=== PATIENT | female | born 1940 | race Two or more races ===

== ENCOUNTER 2023-03-05 12:28 | Emergency (ER) | payer SELFPAY ==
[2023-03-05] MEDS ORDERED: SODIUM CHLORIDE 0.9% 1,000 ML IV ONE (14:30)
[2023-03-05 15:12] LABS: Hematocrit 32.9 % (36.0-46.0); Hemoglobin 10.8 g/dL (12.2-16.2); Mean Corpuscular Hemoglobin 29.9 pg (28.0-32.0); Mean Corpuscular Hgb Conc. 32.8 g/dL (32.0-36.0); Mean Corpuscular Volume 91.1 fL (80.0-100.0); Red Blood Cells 3.61 10^6/uL (4.0-5.20); Red Cell Distribution Width 13.7 % (11.8-14.3); White Blood Cell 14.6 10^3/uL (4.4-10.8)
[2023-03-05 15:19] LABS: Basophils % (manual) 0 (0.0-2.0); Blast Cells 0; Eosinophils % (manual) 0 (0-7); Metamyelocytes % 0; Myelocytes % 0; Promyelocytes % 0; Reactive Lymphocytes 0
[2023-03-05 15:28] LABS: Alanine Aminotransferase 24 U/L (7-40); Alkaline Phosphatase 94 U/L (46-116); Anion Gap 14 (5-15); Aspartate Aminotransferase 53 U/L (13-40); BUN/Creatinine Ratio 24.6 (10.0-20.0); Blood Urea Nitrogen 17 mg/dL (9-23); Calcium 8.8 mg/dL (8.7-10.4); Carbon Dioxide 19 mmol/L (20-30); Chloride 107 mmol/L (98-107); Glucose 124 mg/dL (74-106); Magnesium 1.7 mg/dL (1.6-2.6); Potassium 3.2 mmol/L (3.5-5.1); Sodium 140 mmol/L (136-145)
[2023-03-05 15:29] LABS: Bilirubin, Total 0.9 mg/dL (0.2-1.0); Total Protein 6.7 g/dL (5.7-8.2)
[2023-03-05 15:53] LABS: Band Neutrophils % (manual) 11; Lymphocytes % (manual) 2 (10.0-50.0); Monocytes % (manual) 3 (0-12); Platelet Estimate Adequate; RBC Morphology Normal
[2023-03-05] MEDS ORDERED: POTASSIUM EFFERVESENT TAB 25 MEQ PO ONE (17:15)
[2023-03-05 17:44] LABS: Urine Bacteria FEW /hpf (None Seen); Urine Blood 2+ /uL (Negative); Urine Clarity Clear (Clear); Urine Color Yellow (Yellow); Urine Mucus FEW (None Seen); Urine Protein, UAD 1+ (Negative); Urine Specific Gravity 1.027 (1.001-1.035); Urine Urobilinogen Normal (Negative); Urine WBC 12 /hpf (0 - 5); Urine pH 5.5 (5.0-8.0)
[2023-03-05 18:00] VITALS: BP 127/39; TEMP 98.3
[2023-03-05] MEDS ORDERED: ACET300T51 PO (18:10)
[2023-03-05] MEDS ORDERED: BACDST PO (18:11)
[2023-03-05 18:12] VITALS: PULSE 79
[2023-03-05 18:45] VITALS: RESP 16; O2SAT 97
== END 2023-03-05 18:45 | disposition home or self-care (01) ==
LOC: ER 12:28 → EDBD 12:28 → ER 18:45
DX: S70.02XA Contusion of left hip, initial encounter (principal); E87.6 Hypokalemia; R82.71 Bacteriuria; W19.XXXA Unspecified fall, initial encounter; Y93.89 Activity, other specified; Y92.89 Other specified places as the place of occurrence of the external cause; Y99.8 Other external cause status
CPT/HCPCS: 36415; 71046; 73700; 80053; 81001; 83735; 85007; 85027; 93005; 96360; 96361; 99285; J7030